=== PATIENT | female | born 1965 | race Caucasian/White ===

== ENCOUNTER 2016-12-24 19:32 | Emergency (ER) | payer MEDICAID ==
[2016-12-24 21:55] VITALS: BP 98/65
== END 2016-12-24 21:55 | disposition home or self-care (01) ==
LOC: ED 19:32
DX: M72.2 Plantar fascial fibromatosis (principal)

== ENCOUNTER 2017-06-26 16:52 | Emergency (ER) | payer MEDICAID ==
[~2017-06-26] VITALS: Ht 157.5 cm; Wt 64.2 kg
[2017-06-26 18:40] LABS: BASOPHIL % 0.2 % (0-2); PLATELET COUNT 179 x10^3mcL (130-400); RED CELL DISTRIBUTION WIDTH 13.3 % (11.5-14.5)
[2017-06-26 19:16] LABS: CALCIUM 9.1 mg/dL (8.5-10.1); CARBON DIOXIDE 29.4 mmol/L (21-32); CHLORIDE SERUM 105 mmol/L (98-107); CREATININE SERUM 0.7 mg/dL (0.6-1.0); GFR1 > 60 mL/min; GLUCOSE SERUM 91 mg/dL (74-106); POTASSIUM SERUM 4.1 mmol/L (3.5-5.1); SODIUM SERUM 141 mmol/L (136-145)
[2017-06-26 19:20] LABS: ALBUMIN 3.5 g/dL (3.4-5.0); ALKALINE PHOSPHATASE 78 U/L (46-116); ALT/SGPT 34 U/L (14-59); AST/SGOT 26 U/L (15-37); BILIRUBIN TOTAL 0.45 mg/dL (0.20-1.00); LIPASE 132 IU/L (73-393); TOTAL PROTEIN, SERUM 7.2 g/dL (6.4-8.2)
[2017-06-26 20:36] VITALS: BP 106/58
== END 2017-06-26 20:36 | disposition home or self-care (01) ==
LOC: ED 16:52
PROVIDERS: Emergency Medicine
DX: K29.70 Gastritis, unspecified, without bleeding (principal); R51 Headache
CPT/HCPCS: J1885; J2405; J3490; Q0092

== ENCOUNTER 2017-08-06 18:45 | Emergency (ER) | payer MEDICAID ==
[~2017-08-06] VITALS: Ht 162.6 cm; Wt 61.7 kg
[2017-08-06 19:32] VITALS: Ht 162.6 cm; Wt 61.7 kg
[2017-08-06 21:48] VITALS: BP 122/79
== END 2017-08-06 21:48 | disposition home or self-care (01) ==
LOC: ED 18:45
DX: G44.209 Tension-type headache, unspecified, not intractable (principal); R11.2 Nausea with vomiting, unspecified
CPT/HCPCS: J1200; J1885; J2765; J7030

== ENCOUNTER 2018-02-04 13:33 | Emergency (ER) | payer OTHER ==
[~2018-02-04] VITALS: Ht 157.5 cm; Wt 63.5 kg
[2018-02-04 13:36] VITALS: Ht 157.5 cm; Wt 63.5 kg
[2018-02-04 14:24] LABS: BASOPHIL % 0.1 % (0-2); PLATELET COUNT 192 x10^3mcL (130-400); RED CELL DISTRIBUTION WIDTH 12.8 % (11.5-14.5)
[2018-02-04 14:47] LABS: CALCIUM 9.1 mg/dL (8.5-10.1); CHLORIDE SERUM 103 mmol/L (98-107); CREATININE SERUM 0.9 mg/dL (0.6-1.0); GFR1 > 60 mL/min; GLUCOSE SERUM 122 mg/dL (74-106); POTASSIUM SERUM 3.9 mmol/L (3.5-5.1); SODIUM SERUM 140 mmol/L (136-145)
[2018-02-04 14:48] LABS: ALKALINE PHOSPHATASE 86 U/L (46-116); ALT/SGPT 22 U/L (14-59); AMYLASE 60 U/L (25-115); AST/SGOT 18 U/L (15-37); BILIRUBIN TOTAL 0.5 mg/dL (0.20-1.00); LIPASE 117 IU/L (73-393); TOTAL PROTEIN, SERUM 7.5 g/dL (6.4-8.2)
[2018-02-04 16:00] VITALS: BP 99/56
== END 2018-02-04 16:10 | disposition home or self-care (01) ==
LOC: ED 13:33
PROVIDERS: Emergency Medicine
DX: K52.9 Noninfective gastroenteritis and colitis, unspecified (principal); K59.00 Constipation, unspecified
CPT/HCPCS: J1885; J2405; J7030

== ENCOUNTER 2018-02-22 20:40 | Emergency (ER) | payer OTHER ==
[~2018-02-22] VITALS: Ht 157.5 cm; Wt 64.0 kg
[2018-02-22 20:53] VITALS: Ht 157.5 cm; Wt 64.0 kg
[2018-02-22 22:07] LABS: microscopic required? NO
[2018-02-22 22:15] LABS: urine erythrocyte NEGATIVE (NEGATIVE)
[2018-02-22 22:18] LABS: BASOPHIL % 0.3 % (0-2); PLATELET COUNT 176 x10^3mcL (130-400); RED CELL DISTRIBUTION WIDTH 12.8 % (11.5-14.5)
[2018-02-22 22:28] LABS: CALCIUM 7.8 mg/dL (8.5-10.1); CARBON DIOXIDE 27.9 mmol/L (21-32); CHLORIDE SERUM 107 mmol/L (98-107); CREATININE SERUM 0.7 mg/dL (0.6-1.0); GFR1 > 60 mL/min; GLUCOSE SERUM 112 mg/dL (74-106); POTASSIUM SERUM 3.7 mmol/L (3.5-5.1); SODIUM SERUM 139 mmol/L (136-145)
[2018-02-22 22:32] LABS: ALBUMIN 3.4 g/dL (3.4-5.0); ALKALINE PHOSPHATASE 78 U/L (46-116); ALT/SGPT 17 U/L (14-59); AMYLASE 49 U/L (25-115); AST/SGOT 15 U/L (15-37); BILIRUBIN TOTAL 0.6 mg/dL (0.20-1.00); LIPASE 111 IU/L (73-393); TOTAL PROTEIN, SERUM 6.3 g/dL (6.4-8.2)
[2018-02-23 01:48] VITALS: BP 102/60
== END 2018-02-23 01:48 | disposition home or self-care (01) ==
LOC: ED 20:40
PROVIDERS: Specialist
DX: R10.32 Left lower quadrant pain (principal); M54.5 Low back pain; E78.00 Pure hypercholesterolemia, unspecified
CPT/HCPCS: 72072; 83880; J1170; J1885; J7030